=== PATIENT | female | born 2000 | race Caucasian/White ===

== ENCOUNTER 2025-05-17 10:36 | Emergency (ER) | payer OTHER, SELFPAY ==
[2025-05-17 10:42] VITALS: BP 132/97; PULSE 98; RESP 14; TEMP 36.1; O2SAT 97; BMI 34.3
--- NOTE | 2025-05-17 11:34 | ED.WOUNDLAC ---
HPI - Wound/Laceration <Cesilia Butcher PA-C - Last Filed: 05/17/25 17:41> General Chief Complaint: Wound/Laceration Stated Complaint: Cut Right ring finger, thumb L&I Time Seen by Provider: 05/17/25 11:05 Source: patient Mode of arrival: Ambulatory History of Present Illness HPI narrative: Ms. Comer is a very pleasant 25-year-old female with no reported past medical history who presents to the emergency department for laceration to her right 3rd, 4th and 1st finger after slicing them on a mandoline at work prior to arrival. Her Tdap is not up-to-date. Patient states that she was slicing potatoes using a mandolin when she accidentally sliced off the tip of her 4th finger, thumb and also slightly the middle finger. She is still able to fully flex and extend her hand. Bleeding is controlled. No blood thinners. She is allergic to Bactrim. No other injuries. Related Data Previous Rx's ?Medication ?Instructions ?Recorded cephalexin 500 mg capsule 500 mg PO TID 5 days #15 caps 05/17/25 Allergies Allergy/AdvReac Type Severity Reaction Status Date / Time sulfamethoxazole (From Allergy Verified 05/17/25 10:42 Bactrim) trimethoprim (From Bactrim) Allergy Verified 05/17/25 10:42 Review of Systems <Cesilia Butcher PA-C - Last Filed: 05/17/25 17:41> Review of Systems ROS Unobtainable: All systems reviewed & are unremarkable except as noted in HPI and below Patient History <Cesilia Butcher PA-C - Last Filed: 05/17/25 17:41> Social History Smoking Status: Unknown if ever smoked Smoking Status: Unknown if ever smoked Exam <FABIÁN Graham Last Filed: 05/17/25 17:41> Narrative Exam Narrative: GENERAL: 25 year old patient appears stated age. Well-developed patient, in no acute distress. HEAD: Atraumatic. Normocephalic. EYES: PERRL. Extraocular motions intact. No scleral icterus. No injection or drainage. NECK: Trachea midline. Cervical ROM intact. CARDIOVASCULAR: Regular rate RESPIRATORY: ?Nonlabored respirations. ?Speaking in clear, full sentences. ? EXTREMITIES: RIGHT HAND: Patient has avulsion of the ulnar tip of the right 4th digit, bleeding is controlled, the distal tip of the nail is also removed. No visible bone. Superficial ulnar avulsion of the 3rd distal fingertip. Superficial avulsion of the radial distal tip of the 1st finger/thumb. In the nailbeds are intact. She has brisk cap refill and sensation intact to light touch on the remaining distal fingertips. 2+ bilateral radial pulses. Full flexion-extension of the DIP, PIP, MCPs. NEURO: AOx3. ?Clear speech. ?Moves all 4 extremities appropriately. SKIN: Avulsion of right distal superficial fingertips 4, 3, 1 described above. Remainder of skin is warm, dry, no rashes. Initial Vital Signs Initial Vital Signs: Vital Signs Temperature 97.0 F L 05/17/25 10:42 Pulse Rate 98 H 05/17/25 10:42 Respiratory Rate 14 05/17/25 10:42 Blood Pressure 132/97 H 05/17/25 10:42 Pulse Oximetry 97 05/17/25 10:42 Oxygen Delivery Method Room Air 05/17/25 10:42 <Jacobo Esteban MD - Last Filed: 05/17/25 18:02> Initial Vital Signs Initial Vital Signs: Vital Signs Temperature 97.0 F L 05/17/25 10:42 Pulse Rate 98 H 05/17/25 10:42 Respiratory Rate 14 05/17/25 10:42 Blood Pressure 132/97 H 05/17/25 10:42 Pulse Oximetry 97 05/17/25 10:42 Oxygen Delivery Method Room Air 05/17/25 10:42 Procedures <Cesilia Butcher PA-C - Last Filed: 05/17/25 17:41> Nerve Block Nerve Block 1: Local Anesthetic: lidocaine 1% Amount of anesthesia used (mL): 4 Side: right Nerve Blocks: digital (4th finger) Procedure Successful: Yes Patient Tolerated Procedure: Well and No complications Nerve Block 2: Local Anesthetic: lidocaine 1% Amount of anesthesia used (mL): 3 Side: right Nerve Blocks: digital (thumb) Procedure Successful: Yes Patient Tolerated Procedure: Well and No complications Course <Cesilia Butcher PA-C - Last Filed: 05/17/25 17:41> Orders Ordered: ED Orders 05/17/25 11:57 XR hand RT min 3V Stat Discontinued Medications Acetaminophen (Acetaminophen 325 Mg Tablet) 975 mg PO NOW ONE Stop: 05/17/25 11:58 Last Admin: 05/17/25 12:14 Dose: 975 mg Documented By: DENYS Bacitracin (Bacitracin Oint 0.9 Gm Pckt) 1 applic TOP NOW ONE Stop: 05/17/25 12:43 Last Admin: 05/17/25 12:46 Dose: 1 applic Documented By: DENYS Diphtheria/Tetanus/Acell Pertussis (Tet,Diph,Pertuss(Acell),Vac/Pf 0.5 Ml Syringe) 0.5 ml IM .ONCE ONE Stop: 05/17/25 11:08 Last Admin: 05/17/25 12:12 Dose: 0.5 ml Documented By: DENYS Vital Signs Vital signs: Vital Signs - 8 hr 05/17/25 10:42 05/17/25 14:00 Temperature 97.0 F L Pulse Rate 98 H 95 H Respiratory Rate 14 16 Blood Pressure 132/97 H 130/97 H Pulse Oximetry 97 99 Oxygen Delivery Method Room Air Room Air <Jacobo Esteban MD - Last Filed: 05/17/25 18:02> Orders Ordered: ED Orders 05/17/25 11:57 XR hand RT min 3V Stat Discontinued Medications Acetaminophen (Acetaminophen 325 Mg Tablet) 975 mg PO NOW ONE Stop: 05/17/25 11:58 Last Admin: 05/17/25 12:14 Dose: 975 mg Documented By: DENYS Bacitracin (Bacitracin Oint 0.9 Gm Pckt) 1 applic TOP NOW ONE Stop: 05/17/25 12:43 Last Admin: 05/17/25 12:46 Dose: 1 applic Documented By: DENYS Diphtheria/Tetanus/Acell Pertussis (Tet,Diph,Pertuss(Acell),Vac/Pf 0.5 Ml Syringe) 0.5 ml IM .ONCE ONE Stop: 05/17/25 11:08 Last Admin: 05/17/25 12:12 Dose: 0.5 ml Documented By: DENYS Vital Signs Vital signs: Vital Signs - 8 hr 05/17/25 10:42 05/17/25 14:00 Temperature 97.0 F L Pulse Rate 98 H 95 H Respiratory Rate 14 16 Blood Pressure 132/97 H 130/97 H Pulse Oximetry 97 99 Oxygen Delivery Method Room Air Room Air [facility] - Wound/Laceration <Cesilia Butcher PA-C - Last Filed: 05/17/25 17:41> Medical Records Medical records narrative: None available for review Imaging Data XR Hand R: Radiologist's Impression: PROCEDURE: XR HAND RT MIN 3V INDICATIONS: avulsion tip of 4th and 1 st fingers mandolin TECHNIQUE: 3 views of the hand(s) acquired. COMPARISON: None. FINDINGS: Bones: No acute fractures or dislocations. Carpal bones are normally aligned. No suspicious bony lesions. Soft tissues: Skin irregularity at the distal ring finger. No radiopaque foreign body. IMPRESSION: Distal ring finger soft tissue irregularity. No acute osseous abnormality. No radiopaque foreign body. Approved by: Jonathan Paiz M.D. on 05/17/2025 at 12:19 [facility] Narrative Medical decision making narrative: 25-year-old female with no reported past medical history who presents to the emergency department for laceration to her right 3rd, 4th and 1st finger after slicing them on a mandoline at work prior to arrival. Differential diagnosis includes but is not limited to fingertip avulsion, tuft fracture, etc. On exam patient is in no acute distress, nontoxic appearing, vital signs appropriate. She has avulsion of the ulnar aspect of the distal 4th and 3rd fingertips and radial distal tip of the thumb on the right hand. No visible bone, she is still neurovascularly intact bleeding is controlled. X-ray right hand was obtained revealing no acute osseous abnormalities. Her Tdap was updated. She was given Tylenol. Digital block was performed on the right 4th finger and the thumb. All fingers were soaked in diluted Betadine and open wounds were irrigated extensively. Bacitracin, Xeroform, Telfa, Coban nonadherent dressings were then applied to allow the fingers to heal by secondary intention. Discussed proper wound care with the patient. I did initiate her on a short course of cephalexin for infection prophylaxis. Discussed the importance of follow up with PCP, ER return precautions. Patient verbalized understanding of all information agreeable with the plan. She is stable and ambulatory for discharge home. Discharge Plan Departure Patient Disposition: Home Clinical Impression: Fingertip avulsion Qualifiers: Encounter type: initial encounter Qualified Code(s): S61.209A - Unspecified open wound of unspecified finger without damage to nail, initial encounter Instructions: DI for Avulsion Laceration (Not Requiring Sutures) Activity Restrictions/Additional Instructions: Today you sustained avulsion lacerations to the right 3rd 4th and 1st fingers. These will need to heal on their own which may take multiple weeks. Please keep the dressing on your wound clean, dry, and intact for the next 24 hours. After this time, you may remove the dressing and gently clean the wound with soap and water, then pat dry. Apply bacitracin or triple antibiotic ointment to the open wounds then cover with gauze and bandage. Keep the wound clean and covered. Avoid soaking the wound in any water such as a bath, pool, or the ocean. If you develop any signs of wound infection such as increased redness, pus drainage, streaking redness, or fevers, please return to the ER immediately for evaluation. Once sutures are removed and the wound has healed, apply sunscreen daily to reduce the appearance of scars. We updated your tetanus shot today. A short course of antibiotics have been sent to your pharmacy, [facility]. Please use RICE therapy for your pain in addition to ibuprofen/acetaminophen. Rest the painful area. Ice the area of pain/swelling for at least 15 minutes, 4x a day. Compress the area of swelling using a brace, wrap, or splint if applied. Elevate the painful or swollen extremity by supporting it above the level of the heart with pillows when sitting or laying. Please take Ibuprofen (Motrin/Advil) or Acetaminophen (Tylenol) for pain. These are available over the counter. You may take Ibuprofen 600 mg every 8 hours with food for pain. You may also take Acetaminophen 650 mg every 4-6 hours for pain. Do not exceed 3000 mg of Tylenol a day as this can cause liver damage. Do not drink alcohol with either of these medications. Please follow up with your primary care doctor within the next 2-3 days for ER follow-up. (If you do not have a PCP you can call [phone]. ?to schedule an appointment with an [facility] Primary Care Provider) IF YOU DEVELOP ANY NEW OR WORSENING SYMPTOMS, RETURN TO THE ER! Please read the attached instructions, they highlight more specific treatments and interventions for you at home. Thank you for letting me participate in your care, Cesilia C. Hadley, PA-C Prescriptions: New cephalexin 500 mg capsule 500 mg PO TID 5 Days Qty: 15 0RF Stand Alone Forms: Patient Portal/API, Work Release Note ED Sign-out <Jacobo Esteban MD - Last Filed: 05/17/25 18:02> Cosign ED Attending Cosignature Attestation: I was immediately available in the department for consultation. ?This documentation has been reviewed and I agree with assessment and plan. Supervised by Jacobo Esteban MD
--- NOTE | 2025-05-17 11:57 | DI.RAD.S_ITS ---
PROCEDURE: XR HAND RT MIN 3V INDICATIONS: avulsion tip of 4th and 1 st fingers mandolin TECHNIQUE: 3 views of the hand(s) acquired. COMPARISON: None. FINDINGS: Bones: No acute fractures or dislocations. Carpal bones are normally aligned. No suspicious bony lesions. Soft tissues: Skin irregularity at the distal ring finger. No radiopaque foreign body. IMPRESSION: Distal ring finger soft tissue irregularity. No acute osseous abnormality. No radiopaque foreign body. Approved by: Jonathan Paiz M.D. on 05/17/2025 at 12:19
--- NOTE | 2025-05-17 12:05 | PC.NURSE ---
placeration and bleeding noted to tips of multiple fingers on L side
[2025-05-17] MEDS: TET,DIPH,PERTUSS(ACELL),VAC/PF 0.5 ML SYRINGE IM (12:12)
[2025-05-17] MEDS: ACETAMINOPHEN 325 MG TABLET 975 MG PO (12:14)
[2025-05-17] MEDS: BACITRACIN OINT 0.9 GM PCKT 1 APPLIC TOP (12:46)
[2025-05-17 14:00] VITALS: BP 130/97; PULSE 95; RESP 16; O2SAT 99
== END 2025-05-17 14:01 | disposition home or self-care (01) ==
PROVIDERS: Emergency Provider Physician Assistant
DX: S61.011A Laceration without foreign body of right thumb without damage to nail, initial encounter (principal); S61.212A Laceration without foreign body of right middle finger without damage to nail, initial encounter; S61.214A Laceration without foreign body of right ring finger without damage to nail, initial encounter; W26.0XXA Contact with knife, initial encounter; Z23 Encounter for immunization
CPT/HCPCS: 64450; 73130; 90471; 99283; 99284; 90715